=== PATIENT | male | born 1955 | race Caucasian/White ===

== ENCOUNTER 2016-08-14 14:32 | Emergency (ER) | payer BC ==
--- NOTE | 2016-08-14 15:53 | Emergency Department Record ---
History of Present Illness - General Chief Complaint: Abdominal Pain Stated Complaint: PAIN IN RT ABD Time Seen by Provider: 08/14/16 15:53 Source: Patient Mode of Arrival: Ambulatory Limitations: No limitations - History of Present Illness Initial Comments: pt is c/o rlq pain similar to what he had in the past when one of the cysts on his kidney ruptured. pt has polycystic kidney disease. pt has no n/v/c/d. pt just started dialysis 3 wks ago Complaint: Abdominal pain Onset/Timin -: Days(s) Location: RLQ Radiation: None Migration to: No migration Severity: Moderate Quality: Aching Consistency: Constant Improves With: Nothing Worsens With: Nothing Context: Other Associated Symptoms: Denies other symptoms - Related Data Home Medications Medication Instructions Recorded Confirmed Last Taken Aspirin 325 mg PO QD tab 07/31/15 08/14/16 08/14/16 Metoprolol Succinate 0.5 tab PO QHS tab 07/31/15 08/14/16 08/14/16 Cholecalciferol (Vitamin D3) 3,000 unit PO DAILY 08/14/16 08/14/16 08/14/16 [Vitamin D3] Allergies Allergy/AdvReac Type Severity Reaction Status Date / Time No Known Allergies Allergy Unverified 05/23/16 07:56 Travel Screening - Travel/Exposure Within Last 30 Days Have you traveled within the last 30 days?: No - Travel/Exposure Within Last Year Have you traveled outside the [place] in the last year?: No - Additonal Travel Details Have you been exposed to anyone with a communicable illness?: No - Travel Symptoms Symptom Screening: None Review of Systems Reviewed: No additional complaints except as noted below Constitutional: Reports: As per HPI. Denies: Chills, Fever, Malaise, Night sweats, Weakness, Weight change Eyes: Reports: As per HPI. Denies: Eye discharge, Eye pain, Photophobia, Vision change ENT: Reports: As per HPI. Denies: Congestion, Dental pain, Ear pain, Epistaxis , Hearing loss, Throat pain Respiratory: Reports: As per HPI. Denies: Cough, Dyspnea, Hemoptysis, Stridor, Wheezes Cardiovascular: Reports: As per HPI. Denies: Arrhythmia, Chest pain, Dyspnea on exertion, Edema, Murmurs, Orthopnea, Palpitations, Paroxysmal nocturnal dyspnea, Rheumatic Fever, Syncope Endocrine: Reports: As per HPI. Denies: Fatigue, Heat or cold intolerance, Polydipsia, Polyuria Gastrointestinal: Reports: As per HPI. Denies: Abdominal pain, Constipation, Diarrhea, Hematemesis, Hematochezia, Melena, Nausea, Vomiting Genitourinary: Reports: As per HPI. Denies: Dysuria, Frequency, Hematuria, Incontinence, Retention, Testicular pain, Testicular mass, Urgency Musculoskeletal: Reports: As per HPI. Denies: Arthralgia, Back pain, Gout, Joint swelling, Myalgia, Neck pain Skin: Reports: As per HPI. Denies: Bruising, Change in color, Change in hair/ nails, Lesions, Pruritus, Rash Neurological: Reports: As per HPI. Denies: Abnormal gait, Confusion, Headache, Numbness, Paresthesias, Seizure, Tingling, Tremors, Vertigo, Weakness Psychiatric: Reports: As per HPI. Denies: Anxiety, Auditory hallucinations, Depression, Homicidal thoughts, Suicidal thoughts, Visual hallucinations Hematological/Lymphatic: Reports: As per HPI. Denies: Anemia, Blood Clots, Easy bleeding, Easy bruising, Swollen glands Past Medical History - SOCIAL HISTORY Smoking Status: Current every day smoker Alcohol Use: None Drug Use: None - RESPIRATORY Hx Respiratory Disorders: No - CARDIOVASCULAR Hx Cardio Disorders: Yes Hx Abnormal EKG: Yes - NEURO Hx Neuro Disorders: No - GI Hx GI Disorders: No - Hx Genitourinary Disorders: Yes Hx Dialysis: Yes Hx Renal Disease: Yes - ENDOCRINE Hx Endocrine Disorders: Yes Hx Diabetes: Yes Hx Thyroid Disease: No - MUSCULOSKELETAL Hx Musculoskeletal Disorders: No - PSYCH Hx Psych Problems: No - HEMATOLOGY/ONCOLOGY Hx Hematology/Oncology Disorders: No Family Medical History Any Significant Family History?: Yes Hx Heart Disease: Father Physical Exam - General General Appearance: Alert, Oriented x3, Cooperative, Mild distress - Head Head exam: Normal inspection - Eye Eye exam: Normal appearance, PERRL, EOMI Pupils: Normal accommodation - ENT ENT exam: Normal exam, Mucous membranes moist, Normal external ear exam, Normal orophraynx Ear exam: Normal external inspection. negative: External canal tenderness Nasal Exam: Normal inspection. negative: Discharge, Sinus tenderness Mouth exam: Normal external inspection, Tongue normal Teeth exam: Normal inspection. negative: Dental caries Throat exam: Normal inspection. negative: Tonsillar erythema, Tonsillar exudate - Neck Neck exam: Normal inspection, Full ROM. negative: Tenderness - Respiratory Respiratory exam: Normal lung sounds bilaterally. negative: Respiratory distress - Cardiovascular Cardiovascular Exam: Regular rate, Normal rhythm, Normal heart sounds - GI/Abdominal GI/Abdominal exam: Soft, Normal bowel sounds, Tenderness - Rectal Rectal exam: Deferred - exam: Deferred - Extremities Extremities exam: Normal inspection, Full ROM, Normal capillary refill. negative: Tenderness - Back Back exam: Reports: Normal inspection, Full ROM. Denies: Muscle spasm, Rash noted, Tenderness - Neurological Neurological exam: Alert, CN II-XII intact, Normal gait, Oriented X3 - Psychiatric Psychiatric exam: Normal affect, Normal mood - Skin Skin exam: Dry, Intact, Normal color, Warm Course Vital Signs 08/14/16 14:52 Temperature 98.8 F Pulse Rate 72 Respiratory 20 Rate Blood Pressure 127/70 Pulse Ox 97 - Reevaluation(s) Reevaluation #1: 08/14/16 18:02 d/w dr gómez and dr rock Medical Decision Making - Management Options MDM Management: Additional Work-up Planned (e.g. ADM/Transfer/OP Study) - Data Complexity MDM Data: Labs Ordered and/or Reviewed, X-Ray Ordered and/or Reviewed - Lab Data Result diagrams: 08/14/16 15:45 08/14/16 15:45 Disposition Disposition: Transfer Clinical Impression: Renal failure Diverticulitis Qualifiers: Diverticulitis site: large intestine Diverticulitis bleeding: without bleeding Diverticulitis complication: with abscess Qualified Code(s): K57.20 - Diverticulitis of large intestine with perforation and abscess without bleeding Disposition: Acute Care Hospital Transfer Transfer To: [facility] Reason For Transfer: diverticulitis w abscess Accepting Physician: dr gómez Time Discussed w/Accepting Physician: 18:20 Forms: Patient Portal Access
[2016-08-14] MEDS ORDERED: 0.9 % SODIUM CHLORIDE 1,000 ML BAG IV ONE (15:58)
[2016-08-14 16:10] LABS: BASO % 0.5 % (0-6); EOS % 2.1 % (0-6); GRAN % 63.2 % (47-80); HEMATOCRIT 33.5 % (42.0-52.0); HEMOGLOBIN 10.6 gm/dl (14.0-18.0); LYMPH % 24.6 % (16-45); MEAN CORPUSCULAR HGB CONC 31.6 g/dl (32-36); MEAN PLATELET VOLUME 9.9 fl (7.4-10.4); MONO % 9.6 % (0-9); PLATELET COUNT 277 K/uL (130-400); RED BLOOD COUNT 3.49 M/uL (4.40-5.70); RED CELL DISTRIBUTION WIDTH 14.7 % (11.5-14.5); URINE APPEARANCE CLEAR; URINE BILIRUBIN NEGATIVE (NEGATIVE); URINE BLOOD NEGATIVE (NEGATIVE); URINE COLOR YELLOW; URINE GLUCOSE (UA) NEGATIVE (NEGATIVE); URINE KETONE NEGATIVE (NEGATIVE); URINE LEUKOCYTE ESTERASE NEGATIVE (NEGATIVE); URINE NITRITE NEGATIVE (NEGATIVE); URINE UROBILINOGEN 0.2 E.U./dL (0.20 - 1.00); WHITE BLOOD COUNT W/O DIFF 11.2 K/uL (4.2-12.2)
[2016-08-14 16:11] LABS: MEAN CORPUSCULAR HEMOGLOBIN 30.3 pg (27-33)
[2016-08-14 16:32] LABS: ALBUMIN 4.2 gm/dL (3.5-5.0); ANION GAP 17.3 (7-16); BILIRUBIN,TOTAL 0.34 mg/dL (0.2-1.3); CARBON DIOXIDE 25.7 mmol/L (22-30); CREATININE 4.5 mg/dL (0.66-1.25); TOTAL PROTEIN 7.5 gm/dL (6.3-8.2)
[2016-08-14] MEDS ORDERED: AMPICILLIN SODIUM/SULBACTAM NA 3 G in 0.9 % SODIUM CHLORIDE 100ML 100 ML IVPB ONE (17:59)
--- NOTE | 2016-08-19 14:45 | CT SCAN REPORT ---
EXAM: CT SCAN OF THE ABDOMEN AND PELVIS WITHOUT CONTRAST HISTORY: RIGHT LOWER QUADRANT ABDOMINAL PAIN FOR THE PAST THREE DAYS. TECHNIQUE: Standard CT imaging of the abdomen and pelvis was performed in the axial plane without contrast. Additional coronal and sagittal reformatted images were also performed. FINDINGS: Bronchiectasis is present at the medial aspect of the left lower lobe. Mucous material is present within several of the dilated bronchi. There is mild associated atelectasis or scarring. The lung bases are otherwise clear. The liver, gallbladder, biliary tree, pancreas, spleen, and adrenal glands are normal. The kidneys are polycystic. The renal parenchyma is nearly completely replaced by enumerable tiny cysts. Several of these cysts are proteinaceous. Scattered parenchymal calcifications are also present. There is no hydronephrosis or obstructing calculus. The ureters and urinary bladder are normal. There are extensive atherosclerotic calcifications within the aorta. The common iliac arteries are ectatic with the right measuring 2.1 cm and the left also 2.1 cm in maximal diameter. There is no aortic aneurysm. There is no retroperitoneal lymphadenopathy. The stomach and epigastrium appear normal. There are numerous diverticula within the sigmoid colon. There is abnormal wall thickening of the sigmoid loop which extends into the right lower quadrant. There are surrounding inflammatory changes. There is a loculated collection of air and fluid along the inner surface of the anterior abdominal wall within the right lower quadrant just above the level of the inguinal canal opening. The appearance is consistent with a small diverticular abscess which measures 4.5 x 1.8 cm. There is wall thickening of the adjacent cecum which is likely reactive in nature. The appendix is visualized and is normal. The small bowel loops are unremarkable. There is no pneumoperitoneum or ascites. The prostate gland is enlarged. The urinary bladder appears within normal limits. Extensive degenerative changes are present within the spine. There are no acute osseous abnormalities. IMPRESSION: 1. ACUTE SIGMOID DIVERTICULITIS WITH ASSOCIATED DIVERTICULAR ABSCESS LOCATED WITHIN THE RIGHT LOWER QUADRANT ALONG THE INNER SURFACE OF THE ANTERIOR ABDOMINAL WALL. THE ABSCESS MEASURES 4.5 X 1.8 CM. 2. THERE IS NO PNEUMOPERITONEUM. 3. POLYCYSTIC KIDNEYS. 4. ATHEROSCLEROTIC CHANGES OF THE ABDOMINAL AORTA AND ILIAC VESSELS. THE COMMON ILIAC ARTERIES ARE MILDLY ECTATIC. 5. ADDITIONAL CHRONIC FINDINGS ABOVE. JOB NUMBER: [id number] [facility]
== END 2016-08-14 20:13 | disposition short-term general hospital (02) ==
LOC: ER 14:32
DX: E11.22 Type 2 diabetes mellitus with diabetic chronic kidney disease (principal); N18.6 End stage renal disease; K57.20 Diverticulitis of large intestine with perforation and abscess without bleeding; Z99.2 Dependence on renal dialysis
CPT/HCPCS: 99285 ×2; 96365; 85025; 80076; 80048; 81003; 74176; J0295; J7030

== ENCOUNTER 2017-02-27 08:53 | Day surgery (SDC) | payer BC ==
[2017-02-27] MEDS ORDERED: MIDAZOLAM HCL 2MG/2ML VIAL IV ONE (14:40)
[2017-02-27] MEDS ORDERED: PROPOFOL 10 MG/ML VIAL IV ONE (14:40)
[2017-02-27] MEDS ORDERED: LIDOCAINE 2% MDV (20MG/ML) 20ML VIAL IV ONE (14:40)
--- NOTE | 2017-03-05 09:22 | Operative Note ---
DATE OF SURGERY: 02/27/2017 SURGEON: Lance Markham MD OPERATION: COLONOSCOPY. INDICATIONS: This is a 61-year-old male with history of diverticulitis who presented for colonoscopy. POSTOPERATIVE DIAGNOSES: 1. Diffuse diverticulosis involving the sigmoid colon, descending colon, transverse colon, and ascending colon. 2. Otherwise normal colon. ANESTHESIA: Sedation is per Anesthesia. Pulse oximetry was monitored throughout the procedure to maintain O2 saturation of 90% or greater. Supplemental oxygen was administered via nasal cannula. Cardiac and vital signs were monitored throughout the duration of the procedure, and they were stable. The procedure of colonoscopy and risks and alternatives of the procedure, including the risk of bleeding and perforation, among others, were explained to the patient who voiced understanding and agreed to have the procedure done. Physical examination was performed, and the patient was found stable for sedation. PROCEDURE: The patient was placed in the left lateral position. Sedation was initiated. A digital rectal exam was performed and showed some mild external hemorrhoids with no palpable rectal masses. An Olympus PCF-180AL colonoscope was then inserted into the rectum under direct visualization. It was advanced to the cecum without difficulty. The ileocecal valve and appendiceal orifice were identified and photographed. The colonic mucosa was carefully examined upon introduction of the colonoscope. There were scattered diverticula noted in the sigmoid, descending, transverse, and ascending colon. There were no other lesions noted. The colonoscope was then withdrawn while carefully examining the colonic mucosal surfaces. No other lesions were noted. In the rectum, retroflexion was performed and grade 1 internal hemorrhoids were noted. The colonoscope was then withdrawn and the procedure was terminated. The patient tolerated the procedure well without any immediate complications. He remained with stable vital signs and was transferred to the recovery room. RECOMMENDATIONS: 1. The patient should be on a high-fiber diet. 2. The patient is to have a repeat colonoscopy for screening in about 10 years. Thank you for allowing me to participate in the care of your patient. CC: kidney transplant center at [facility] Jamee Kiran Lance Markham MD Date/Time [facility]
== END 2017-02-27 17:30 | disposition home or self-care (01) ==
LOC: HOP 08:53
PROVIDERS: ATTEND Internal Medicine Gastroenterology
DX: Z12.11 Encounter for screening for malignant neoplasm of colon (principal); I10 Essential (primary) hypertension; E78.00 Pure hypercholesterolemia, unspecified
CPT/HCPCS: 00810; G0121